=== PATIENT | male | born 1950 | race Asian ===

== ENCOUNTER 2017-01-04 13:28 | Emergency (ER) | payer OTHER ==
[~2017-01-04 13:28] MED LIST: ASPI-495 PO; METF10002 PO; [UNRECOGNIZED DRUG - REMARK]
== END 2017-01-04 13:50 | disposition left against medical advice (07) ==
LOC: ER 13:30
DX: Z53.21 Procedure and treatment not carried out due to patient leaving prior to being seen by health care provider (principal)